=== PATIENT | female | born 1960 | race Caucasian/White ===

== ENCOUNTER 2022-12-24 19:21 | Emergency (ER) | payer MEDICAID ==
[~2022-12-24] VITALS: Ht 157.5 cm; Wt 81.0 kg
[2022-12-24 19:30] VITALS: O2SAT 98
[2022-12-24] MEDS ORDERED: ONDANSETRON HCL 4MG/2ML INJ IV STA (21:26)
[2022-12-24] MEDS ORDERED: MORPHINE SULFATE 4 MG/ML CPJ (NOT FOR IM USE) IV ONE (21:30)
[2022-12-24] MEDS ORDERED: SODIUM CHLORIDE 0.9% 1000ML BAG (SEPSIS BOLUS) IV ONE (21:30)
[2022-12-24] MEDS ORDERED: PANTOPRAZOLE SODIUM 40 MG/VIAL IV ONE (21:30)
[2022-12-24] MEDS ORDERED: KETOROLAC 15MG/ML VIAL IV ONE (21:45)
[2022-12-24 23:25] LABS: BASOPHILS % 0.2 % (0.0-2.0); HEMATOCRIT. 39.5 % (36.0-48.0); HEMOGLOBIN. 13.2 g/dL (12.0-16.0); LYMPHOCYTES % 10.7 % (20.0-50.0); MEAN CORPUSCULAR HEMOGLOBIN 28.3 pg (28.0-32.0); MEAN CORPUSCULAR HGB CONC 33.5 g/dL (31.0-37.0); MEAN CORPUSCULAR VOLUME 84.6 fL (81.0-99.0); MEAN PLATELET VOLUME 8.7 fl (7.4-10.4); MONOCYTES % 9.4 % (2.0-8.0); NEUTROPHILS % 79.7 % (40.0-76.0); PLATELET 231 x1000/uL (130-400); RED BLOOD CELL COUNT 4.67 mill/uL (4.2-5.4); RED CELL DISTRIBUTION WIDTH 13.7 % (11.6-14.6); WHITE BLOOD COUNT 8.7 x1000/uL (4.5-11.0)
[2022-12-24] MEDS ORDERED: MORPHINE SULFATE 4 MG/ML CPJ (NOT FOR IM USE) IV NR (23:30)
[2022-12-24] MEDS ORDERED: PANTOPRAZOLE SODIUM 40 MG/VIAL IV NR (23:30)
[2022-12-24] MEDS ORDERED: ONDANSETRON HCL 4MG/2ML INJ IV NR (23:30)
[2022-12-24] MEDS ORDERED: KETOROLAC 15MG/ML VIAL IV NR (23:30)
[2022-12-24 23:40] LABS: CHLORIDE 105 mEq/L (98-107); INDEX HEMOLYSI 3 (1-3); INDEX ICTERIC 1 (1-4); INDEX LIPEMIC 1 (1-3); POTASSIUM 3.6 mEq/L (3.5-5.1); SODIUM 135 mEq/L (136-145)
[2022-12-24 23:58] LABS: ALANINE AMINOTRANSFERASE 26 IU/L (13-61); ALBUMIN 3.4 g/dL (3.4-5.0); ASPARTATE AMINOTRANSFERASE 25 IU/L (15-37); BILIRUBIN TOTAL 0.5 mg/dL (0.1-1.0); CALCIUM 8.8 mg/dL (8.5-10.1); CARBON DIOXIDE 24 mEq/L (21-32); CREATINE KINASE 53 IU/L (26-192); CREATININE 0.7 mg/dL (0.6-1.3); ETHANOL BLOOD < 10 mg/dL (-10); GLUCOSE 125 mg/dL (70-105)
[2022-12-25] LABS: TROPONIN I HIGH SENSITIVITY < 4 ng/L (<54)
[2022-12-25 00:53] LABS: UREA NITROGEN BLOOD 11 mg/dL (7-21)
[2022-12-25 01:30] VITALS: TEMP 98.4
[2022-12-25] MEDS ORDERED: ALBU6.7H3 INH (02:18)
[2022-12-25] MEDS ORDERED: PROT40 MT (02:18)
[2022-12-25] MEDS ORDERED: ACET-2708 MT (02:18)
[2022-12-25] MEDS ORDERED: METO-293 MT (02:18)
[2022-12-25] MEDS ORDERED: DEXAMETHASONE 4MG/ML 1ML VIAL IV ONE (02:30)
[2022-12-25 03:58] VITALS: BP 142/71; PULSE 74; RESP 15
== END 2022-12-25 04:02 | disposition home or self-care (01) ==
LOC: ER 19:21
DX: U07.1 COVID-19 (principal); R10.13 Epigastric pain; I10 Essential (primary) hypertension; B34.9 Viral infection, unspecified; K21.9 Gastro-esophageal reflux disease without esophagitis; E78.00 Pure hypercholesterolemia, unspecified; Z79.899 Other long term (current) drug therapy
CPT/HCPCS: 80053; 80320; 82550; 83605; 83690; 85025; 85610; 87040; 84484; 36415; 84145; 71045; 74176; 93005; 96361; 96374; 96375 ×2; 99285; 87430; 87070; 87426; J1885; J2405; C9113; J7030; C9803; Z7610; J1100; G0480